=== PATIENT | female | born 1975 | race Caucasian/White ===

== ENCOUNTER 2016-11-19 19:42 | Inpatient (IN) ==
[2016-11-19] MEDS ORDERED: ONDANSETRON 4 MG/2 ML VIAL IV STA (20:11)
[2016-11-19] MEDS ORDERED: LABETALOL 20 MG/4 ML SYRINGE IV STA ×2 (20:11→22:10)
[2016-11-19] MEDS ORDERED: SODIUM CHLORIDE 0.9% 1,000 ML IV STA (20:11)
--- NOTE | 2016-11-19 20:31 | Emergency Department Note ---
Phillip Franz Gwan, am scribing for, and in the presence of, Yogesh Mehta MD 20 :29. Tyson Franz Charles R, MD, personally performed the services described in this documentation, ascribed by Kailey Fisher in my presence, and it is both accurate and complete . Arrival - Arrival Chief Complaint: Blood Pressure Stated Complaint: blood presure & vomitting ED Nursing Triage Note: C/O Nausea/vomiting since waking this morning- Pt reports that she took her meds, but unsure if it stayed down due to the vomiting. Pt denies being around anyone with the same symptoms. No active vomiting at time of triage. FSG 198 at time of triage. Mode of Arrival: Ambulatory Limitations: No Limitations Source: Patient, Old Records Reviewed, RN Notes Reviewed Time Seen by Provider: 11/19/16 20:02 - History of Present Illness HPI Narrative: Patient is a 41 y/o female, with a hx of HTN and IDDM, who presents to the ED with a c/o N/V, elevated BP and SALAZAR with an onset this morning. At time of triage , pt's BP was 169/116. Patient stated that her sxs began this morning and have progressively gotten worse throughout the day. She confirmed that she has vomited >20x since onset, that she has mid sternal chest pain, that her SALAZAR is located on top right side of her head and that she administered BP medication with no relief. Patient denies any abd pain, dysuris, urine frequency, administering any OTC medication to help with relief or any abnormal BS levels. During exam, pt did not appear to be in any distress. No other problems/ complaints reported in ED. Onset (ago): hour(s) Consistency: constant Severity: moderate Date of Last Menstrual Period: Hysterectomy Allergies/Adverse Reactions: Allergies Allergy/AdvReac Type Severity Reaction Status Date / Time morphine Allergy Intermediate RASH Verified 10/16/15 19:30 promethazine [From Phenergan] AdvReac Intermediate Shakiness Verified 10/16/15 19:30 Home Medications: Home Medications Medication Instructions Recorded Confirmed Type FLUoxetine [PROzac] 20 mg PO DAILY 10/16/15 11/19/16 History Glimepiride 4 mg PO BID 10/16/15 11/19/16 History Liraglutide [Victoza 2-Refugio] 1.8 mg SUBCUT DAILY 10/16/15 11/19/16 History Lisinopril 10 mg PO DAILY 10/16/15 11/19/16 History Lovastatin 20 mg PO DAILY 10/16/15 11/19/16 History Metformin HCl [Metformin HCl ER] 1,000 mg PO BID 10/16/15 11/19/16 History clonazePAM TAB [KlonoPIN] 0.5 mg PO BID 10/16/15 11/19/16 History Review of System - Review of System 12 point system: reviewed and no additional remarkable complaints except as stated - Review of System Cardiovascular: Present: as per HPI, chest pain Genitourinary female: Present: as per HPI. Absent: dysuria, frequency Neurological: Present: as per HPI, headache Additional ROS comments: Patient stated that she has elevated BP. Medical,Surgical,& Family Hx - Medical History Cardio: History of: Hypertension Psychological: History of: Depression Endocrine: History of: Diabetes Mellitus (IDDM) - Surgical History Reproductive Surgeries: Surgical HX of;: Hysterectomy (partial) - Social History Smoking Status: Never smoker Frequency of Alcohol Use: None Type of Drug Use: None Exam Vital Signs: Vital Signs Temperature 97.7 F 11/19/16 19:50 Pulse Rate 81 11/19/16 23:00 Respiratory Rate 22 11/19/16 23:00 Blood Pressure 161/104 11/19/16 23:00 O2 Sat by Pulse Oximetry 98 11/19/16 23:00 - General General appearance: alert, in no apparent distress - Head Head exam: Present: atraumatic, normocephalic - Eye Eye exam: Present: normal appearance, PERRL, EOMI - ENT ENT exam: Present: normal oropharynx, mucous membranes dry, TM's normal bilaterally, normal external ear exam - Neck Neck exam: Present: full ROM, trachea midline. Absent: tenderness - Chest Chest inspection: Present: symmetric chest wall rise. Absent: tenderness - Respiratory Respiratory exam: Present: normal lung sounds bilaterally. Absent: respiratory distress - Cardiovascular Cardiovascular exam: Present: normal rhythm, tachycardia - Abdominal Exam Abdominal exam: Present: soft, normal bowel sounds. Absent: distention, tenderness - Extremities Exam Extremities exam: Present: calf tenderness (bilaterally) - Back Exam Back exam: Present: full ROM. Absent: tenderness - Neurological Exam Neurological exam: Present: alert, oriented X3, CN II-XII intact. Absent: motor sensory deficit - Psychiatric Psychiatric exam: Present: normal affect, normal mood - Skin Skin exam: Present: warm, dry, intact, normal color Course - Reevaluation(s) Reevaluation #1: Patient reevaluated she still has nausea vomiting since still has a headache blood pressure is difficult to control Time: 00:41 - Consultations Consultation #1: Hospitalist will admit patient Time: 00:40 Results - Labs CBC & BMP: 11/19/16 21:02 11/19/16 21:02 Lab Results: I have reviewed the patients labs Labs: Laboratory Tests 11/19/16 11/19/16 11/19/16 19:51 21:02 21:02 WBC 11.3 RBC 5.45 Hgb 14.2 Hct 40.9 MCV 75.0 L MCH 26 L Plt Count 231 Neut % (Auto) 78.9 H Lymph % (Auto) 15.3 L Neut # (Auto) 8.9 H Sodium 136 Potassium 3.5 Chloride 103 Carbon Dioxide 24 BUN 12 Creatinine 0.60 Glucose 211 H POC Glucose 198 H Total Protein 8.4 H Globulin 4.4 H Albumin/Globulin Ratio 0.9 L Amylase 24 L Urine pH Ur Specific [place] Urine Protein Urine Glucose (UA) Urine Ketones Urine Urobilinogen Urine RBC Urine WBC Urine Test Urine Opiates Screen Ur Barbiturates Screen Ur Phencyclidine Scrn U Amphetamine/Methamph U Benzodiazepines Scrn U Cocaine Metab Screen U Cannabinoids Screen 11/19/16 11/19/16 11/19/16 21:02 21:02 21:02 WBC RBC Hgb Hct MCV MCH Plt Count Neut % (Auto) Lymph % (Auto) Neut # (Auto) Sodium Potassium Chloride Carbon Dioxide BUN Creatinine Glucose POC Glucose Total Protein Globulin Albumin/Globulin Ratio Amylase Urine pH 5.0 Ur Specific [place] 1.023 Urine Protein 30 Urine Glucose (UA) 50 Urine Ketones 80 Urine Urobilinogen < 2.0 H Urine RBC 3 Urine WBC 1 Urine Test Negative Urine Opiates Screen Negative Ur Barbiturates Screen Negative Ur Phencyclidine Scrn Negative U Amphetamine/Methamph Negative U Benzodiazepines Scrn Negative U Cocaine Metab Screen Negative U Cannabinoids Screen Negative - Diagnostic Findings Procedure: CT: report reviewed by me (Head CT: Normal head/brain CT.) Critical Care Time Critical Care Time: Yes Total Critical Care Time: 60 Disposition Clinical Impression: Malignant hypertension, Intractable nausea and vomiting, Gastroparesis due to DM, Headache Case discussed with: patient, patient's family Disposition: Still a Patient Condition: Guarded Time of Disposition: 00:41
[2016-11-19] MEDS ORDERED: LABETALOL 20 MG/4 ML SYRINGE IV ONE ×2 (20:35→22:18)
[2016-11-19] MEDS ORDERED: ONDANSETRON 4 MG/2 ML VIAL ONE (20:35)
--- NOTE | 2016-11-19 20:41 | CT Report ---
Exam: CT head without intravenous contrast Clinical History: 41 years Female headache, elevated blood pressure weakness Technique: Axial computed tomography images of the head/brain without intravenous contrast Comparison: No relevant comparisons Findings: Brain: Unremarkable. Guerrero-white matter distinction maintained. No mass effect. No intra or extra-axial hemorrhage. Ventricles: Unremarkable. No ventriculomegaly. Bones/joints: Calvarium is intact Soft tissues: Unremarkable Sinuses: No active paranasal sinus process Mastoid air cells: Unremarkable visualized. Impression: 1. Normal head/brain CT PROCEDURE INTERPRETED AT [facility] DEPARTMENT OF RADIOLOGY Final Report Signed by: Henok Guerrero MD
[2016-11-19 21:37] LABS: Basophils % 0.3 % (0.0-0.8); Eosinophils # 0.1 10*3/uL (0.0-0.87); Eosinophils % 0.9 % (0.00-10.9); Hematocrit 40.9 VOL% (35.7-47.0); Hemoglobin 14.2 GM/DL (12.0-16.0); Immature Granulocytes % 0.4 %; Immature Granulocytes Absolute 0.04 #; Lymphocytes # 1.7 10*3/uL (1.4-4.0); Lymphocytes % 15.3 % (21.3-54.2); Mean Corpuscular HGB Conc 34.7 GM/DL (32-36); Mean Corpuscular Hemoglobin 26 PG (27-34); Mean Platelet Volume 11.3 FL (9.6-12.0); Monocytes # 0.5 10*3/uL (0.11-0.8); Monocytes % 4.2 % (1.7-12.7); Neutrophils # 8.9 10*3/uL (1.4-7.4); Neutrophils % 78.9 % (38.7-73.9); Platelet Count 231 T/CUMM (130-400); Red Blood Count 5.45 MC/CUMM (3.8-5.5); Red Cell Distribution Width 13.7 % (9.3-17.3); White Blood Count 11.3 T/CUMM (4-12)
[2016-11-19 22:01] LABS: Alanine Aminotransferase 17 U/L (13-56); Alkaline Phosphatase 82 U/L (45-117); Amylase 24 U/L (25-115); Aspartate Amino Transferase 13 U/L (0-37); Blood Urea Nitrogen 12 MG/DL (7-18); Calcium 9.7 MG/DL (8.5-10.1); Glucose 211 MG/DL (74-106); Potassium 3.5 MMOL/L (3.5-5.1); Sodium 136 MMOL/L (136-145); Total Protein 8.4 G/DL (6.4-8.3); Troponin I Only < 0.015 NG/ML (0.00-0.045)
[2016-11-19] MEDS ORDERED: KETOROLAC 30 MG/1 ML VIAL IV STA (22:02)
[2016-11-19 22:10] LABS: Barbiturates Screen,Urine Negative (Negative); Benzodiazepines Screen,Urine Negative (Negative); Cannabinoid Screen,Urine Negative (Negative); Opiate Screen,Urine Negative (Negative); Phencyclidine Screen,Urine Negative (Negative)
[2016-11-19] MEDS ORDERED: KETOROLAC 30 MG/1 ML VIAL ONE (22:11)
[2016-11-19 22:18] LABS: Apearance,Urine Slightly Hazy (Clear); Bacteria,Urine Occasional /HPF (Few); Bilirubin,Urine Negative (Negative); Blood, Urine Negative (Negative); Glucose,Urine (UA) 50 mg/dL (Negative); Ketones,Urine 80 mg/dL (Negative); Mucus,Urine Moderate /LPF (Occasional); Nitrite,Urine Negative (Negative); Protein,Urine 30 MG/DL; RBC,Urine 3 /HPF (0-4); Squamous Epithelial Cell,Urine Occasional /HPF (0-10); Urine Color Yellow (Yellow); Urine Specific Gravity 1.023 (1.001-1.035); Urine Urobilinogen < 2.0 EU/DL (0.2-1.0); WBC,Urine 1 /HPF (0-6)
[2016-11-19] MEDS ORDERED: SODIUM CHLORIDE 0.9% 500 ML IV STA (22:30)
[2016-11-20] MEDS ORDERED: hydrALAZINE 20 MG/1 ML VIAL ONE (00:32)
[2016-11-20] MEDS ORDERED: METOCLOPRAMIDE 10 MG/2 ML VIAL ONE (00:32)
[2016-11-20] MEDS ORDERED: niCARdipine 25 MG/10 ML VIAL IV ONE (00:39)
[2016-11-20] MEDS ORDERED: METOCLOPRAMIDE 10 MG/2 ML VIAL IV STA (00:42)
[2016-11-20] MEDS ORDERED: niCARdipine INJ 25 MG in SODIUM CHLORIDE 0.9% 240 ML IV SCH (01:00)
[2016-11-20] MEDS ORDERED: DEXTROSE 50% 25 GM/50 ML SYRINGE IV PRN (01:23)
[2016-11-20] MEDS ORDERED: ALBUTEROL 2.5 MG/3 ML NEB RESP TX PRN (01:23)
[2016-11-20] MEDS ORDERED: ONDANSETRON 4 MG/2 ML VIAL IV PRN (01:23)
[2016-11-20] MEDS ORDERED: GLUCAGON 1 MG VIAL IM PRN (01:23)
--- NOTE | 2016-11-20 01:35 | Hospitalist History & Physical ---
Assessment and Plan (1) Hypertensive emergency Status: Acute Current Visit: Yes (2) Malignant hypertension Status: Acute Current Visit: Yes (3) Intractable nausea and vomiting Status: Acute Current Visit: Yes (4) Headache Status: Acute Assessment and plan: Our plan for this patient will be admitting her to our service. Patient will have to be admitted to the ICU because of being on a Cardene infusion. I suspect she has gastroparesis based on her symptoms. She has never been diagnosed with gastroparesis. Apparently the symptoms have occurred in the past but not to this extent. Patient has had diabetes greater than 20 years. Will order a KUB. Go to get a gastric emptying study tomorrow. Provide a clear liquid diet and scheduled iv Reglan and IV Protonix will be used. If her symptoms do not resolve fairly quickly might need a GI evaluation. Current Visit: Yes History of Present Illness Chief complaint: Nausea and vomiting History of present illness: Ms. De La Torre is a 41 year old female with past medical history significant for hypertension diabetes who is in normal state of health until this morning. Patient started having a burning sensation in her abdomen and got to a point where she could not keep anything down. Patient is on blood pressure medications. But secondary to not being able to keep her blood pressure medications down her blood pressure has been climbing. She has vomited greater than 20 times. She is complaining of a headache for which she had a CT scan of her head. Secondary to not being able to control her blood pressure with hydralazine and labetalol she was put on a Cardene infusion. We are going to admit her to the ICU. Home Medications Medication Instructions Recorded Confirmed Type FLUoxetine [PROzac] 20 mg PO DAILY 10/16/15 11/19/16 History Glimepiride 4 mg PO BID 10/16/15 11/19/16 History Liraglutide [Victoza 2-Refugio] 1.8 mg SUBCUT DAILY 10/16/15 11/19/16 History Lisinopril 10 mg PO DAILY 10/16/15 11/19/16 History Lovastatin 20 mg PO DAILY 10/16/15 11/19/16 History Metformin HCl [Metformin HCl ER] 1,000 mg PO BID 10/16/15 11/19/16 History clonazePAM TAB [KlonoPIN] 0.5 mg PO BID 10/16/15 11/19/16 History Allergies Allergy/AdvReac Type Severity Reaction Status Date / Time morphine Allergy Intermediate RASH Verified 10/16/15 19:30 promethazine [From Phenergan] AdvReac Intermediate Shakiness Verified 10/16/15 19:30 Medical,Surgical,& Family Hx - Medical History Cardio: History of: Hypertension Psychological: History of: Depression Endocrine: History of: Diabetes Mellitus (IDDM) - Surgical History Reproductive Surgeries: Surgical HX of;: Hysterectomy (partial) - Family History Family History: Reports;: Family Hypertension - Social History Smoking Status: Never smoker Frequency of Alcohol Use: None Type of Drug Use: None 12 point system: reviewed and no additional remarkable complaints except as stated Exam - Constitutional Vitals: Period Temp Pulse Resp BP Sys/Mcdonough Pulse Ox Last 24 Hr 97.7 F 71-103 18-22 125-192/95-117 95-100 General appearance: over weight - Head Head exam: Present: normal inspection - Eye Eye exam: Present: EOMI Pupils: Present: ALLIE - ENT ENT exam: Present: normal exam - Neck Neck exam: Present: normal inspection - Respiratory Respiratory exam: Present: clear to auscultation bilaterally - Cardiovascular Cardiovascular exam: Present: regular rate and rhythm - GI/Abdominal GI/Abdominal exam: Present: hypoactive bowel sounds - Extremities Exam Extremities exam: Present: normal inspection - Back Exam Back exam: Present: normal inspection - Neurological Exam Neurological exam: Present: alert, oriented X3 - Psychiatric Psychiatric exam: Present: normal affect, normal mood - Skin Skin exam: Present: normal color Results - Labs CBC & BMP: 11/19/16 21:02 11/19/16 21:02
[2016-11-20] MEDS: PANTOPRAZOLE 40 MG VIAL IV SCH (02:50)
[2016-11-20 06:29] LABS: Basophils % 0.2 % (0.0-0.8); Eosinophils % 0.3 % (0.00-10.9); Hematocrit 35.9 VOL% (35.7-47.0); Hemoglobin 12.3 GM/DL (12.0-16.0); Immature Granulocytes % 0.3 %; Immature Granulocytes Absolute 0.03 #; Lymphocytes # 1.7 10*3/uL (1.4-4.0); Lymphocytes % 17.5 % (21.3-54.2); Mean Corpuscular HGB Conc 34.3 GM/DL (32-36); Mean Corpuscular Hemoglobin 26 PG (27-34); Mean Corpuscular Volume 76.2 FL (87-102); Monocytes # 0.5 10*3/uL (0.11-0.8); Monocytes % 4.7 % (1.7-12.7); Neutrophils # 7.7 10*3/uL (1.4-7.4); Platelet Count 205 T/CUMM (130-400); Red Blood Count 4.71 MC/CUMM (3.8-5.5); Red Cell Distribution Width 13.5 % (9.3-17.3)
[2016-11-20] MEDS: METOCLOPRAMIDE 10 MG/2 ML VIAL IV SCH ×3 (06:31→17:25)
[2016-11-20 07:06] LABS: Calcium 8.3 MG/DL (8.5-10.1); Osmolality,Calculated 282.5 MOS/KG (273-304); Potassium 3.8 MMOL/L (3.5-5.1)
--- NOTE | 2016-11-20 08:02 | XRay Report ---
Exam: XR KUB Date: 11/20/2016 1:29 AM Indication: Nausea and vomiting Comparison: None Technical: AP supine Findings: Lung bases are unremarkable. The liver and spleen shadows or partially demonstrated. The renal shadows are obscured. Nonspecific GI pattern is present. The bony structures are intact. No obvious pneumoperitoneum Impression: 1. Nonspecific GI pattern. PROCEDURE INTERPRETED AT [facility] DEPARTMENT OF RADIOLOGY Final Report Signed by: Dr. Carlo Jeter
[2016-11-20] MEDS: INSULIN REGULAR 100 UNIT/ML SUBCUT SCH ×2 (09:03→17:24)
[2016-11-20] MEDS: clonazePAM 0.5 MG TABLET PO SCH ×2 (09:04→20:56)
[2016-11-20] MEDS: LOVASTATIN 20 MG TABLET PO SCH (09:04)
[2016-11-20] MEDS: FLUoxetine 20 MG CAPSULE PO SCH (09:05)
[2016-11-20] MEDS: LISINOPRIL 10 MG TABLET PO SCH (09:05)
--- NOTE | 2016-11-20 09:56 | Event Note ---
Patient seen and examined. No acute events overnight. Case discussed with nursing staff. Labs reviewed. Nausea vomiting have resolved Plan to advance diet as tolerated Resume home diabetic medications Cardene drip discontinued Transfer to the floor Continue lisinopril Followed blood pressures and increased medication as needed Plan for discharge home tomorrow with oral Reglan if symptoms have resolved
[2016-11-20] MEDS: GLIMEPIRIDE 4 MG TABLET PO SCH ×2 (11:08→20:56)
--- NOTE | 2016-11-20 14:29 | Nuclear Medicine Report ---
History: Diabetic patient with nausea and vomiting Date: 11/20/2016 Study: Nuclear medicine gastric emptying study Comparison exam: No previous Following the oral ingestion of 500 uCi technetium 99m sulfur colloid mixed with scrambled eggs and toast, images document the progression of transit of radiotracer from stomach into small bowel. Gastric emptying curve was also generated for 4 hours. The stomach is 6% empty at 60 minutes, 36% empty at 2 hours, and 45% empty at 4 hours. The half-time to empty is calculated to be approximately 261 minutes. Impression: Delayed gastric emptying as detailed above PROCEDURE INTERPRETED AT [facility] DEPARTMENT OF RADIOLOGY Final Report Signed by: Dr. Belia Asencio
[2016-11-21] MEDS: PANTOPRAZOLE 40 MG VIAL IV SCH (00:59)
[2016-11-21] MEDS: METOCLOPRAMIDE 10 MG/2 ML VIAL IV SCH ×2 (01:01→06:33)
[2016-11-21] MEDS: INSULIN REGULAR 100 UNIT/ML SUBCUT SCH (07:57)
[2016-11-21] MEDS: LISINOPRIL 10 MG TABLET PO SCH (08:51)
[2016-11-21] MEDS: clonazePAM 0.5 MG TABLET PO SCH (08:51)
[2016-11-21] MEDS: FLUoxetine 20 MG CAPSULE PO SCH (08:51)
[2016-11-21] MEDS: GLIMEPIRIDE 4 MG TABLET PO SCH (08:51)
[2016-11-21] MEDS: LOVASTATIN 20 MG TABLET PO SCH (08:51)
[2016-11-21] MEDS ORDERED: NON-FORMULARY MEDICATION (Liraglutide [Victoza 2-Pak] 1.8 MG) SUBCUT SCH (09:00)
--- NOTE | 2016-11-21 10:36 | Discharge Summary ---
Hospital Course - Hospital Course Hospital Course: Ms. De La Torre is a 41 year old female with past medical history significant for hypertension and diabetes reports nausea and vomiting. Her blood pressure was elevated on admission most likely due to the nausea and vomiting. Patient was placed in the unit overnight and her blood pressure is well controlled on her current medications after her nausea and vomiting was controlled. KUB negative. Gastric emptying study does show delayed emptying consistent with gastroparesis. Patient is not insured and I am concerned about compliance with medicines as all of these medications are extremely high jaime. I have asked Rosalie from case management to go and speak with her about needing assistance. Also asked her to apply for Medicaid. She will need to follow-up with her primary care doctor in 1-2 weeks. - Time spent with patient Time with patient DS: Less than 30 minutes (25 min) Discharge Plan - Discharge Data Disposition: Disch To Home/Self Care Condition at Discharge: Stable Discharge Diet: heart healthy Activity: resume usual activities as tolerated Hygiene: no restrictions Weight Bearing at Discharge: full weight bearing Driving: other (no driving while on clonazepam) - Discharge Medications New Metoclopramide Liquid [Reglan Liquid] 5 mg PO Q8H #90 udcup Omeprazole [Prilosec] 20 mg PO BID #60 capsule Continue clonazePAM TAB [KlonoPIN] 0.5 mg PO BID Lovastatin 20 mg PO DAILY FLUoxetine [PROzac] 20 mg PO DAILY Metformin HCl [Metformin HCl ER] 1,000 mg PO BID Glimepiride 4 mg PO BID Liraglutide [Victoza 2-Refugio] 1.8 mg SUBCUT DAILY Changed Lisinopril 20 mg PO DAILY #60 tablet - Follow Up or Referral Follow Up: [facility] [Other] - 1 Week - Forms/Instructions Additional Discharge Instructions: eat 6 small meals a day, take reglan 30 min before each meal. take zofran prn as needed with nausea. Exam - Constitutional Vitals: Period Temp Pulse Resp BP Sys/Mcdonough Pulse Ox Last 24 Hr 97.2 F-99.1 F 74-88 14-21 136-155/73-85 96-100 General appearance: normal weight, no acute distress - Respiratory Respiratory exam: Present: clear to auscultation bilaterally. Absent: rales, rhonchi, wheezes - Cardiovascular Cardiovascular exam: Present: regular rate and rhythm. Absent: systolic murmur - GI/Abdominal GI/Abdominal exam: Present: normal bowel sounds, soft. Absent: tenderness - Extremities Exam Extremities exam: Present: normal inspection, normal capillary refill - Neurological Exam Neurological exam: Present: alert, oriented X3 Discharge Results Procedures and tests throughout hospitalization: Pending Orders 11/20/16 02:16 MRSA Surveillence, Inf Control Routine Labs on day of discharge: Labs from last 24 hours 11/21/16 11/20/16 11/20/16 07:54 21:16 21:15 POC Glucose 141 H 241 H 252 H 11/20/16 11/20/16 16:00 08:34 POC Glucose 169 H 211 H DS: Provider Date of admission: 11/20/16 01:23 Primary care physician: . No PCP Attending physician on admission: Dilip Jasso MD Discharging clinician: Jojo Urbina MD
[2016-11-21 11:26] VITALS: BP 153/87
== END 2016-11-21 11:45 | disposition home or self-care (01) | DRG 305 ==
LOC: N.ED 19:42 → SUATTDRO 11-20 01:23 → N.EDINP 11-20 01:23 → N.CC 11-20 01:45 → N.4E 11-20 14:44
PROVIDERS: ADMIT Internal Medicine; ATTEND Internal Medicine